=== PATIENT | female | born 1990 | race Caucasian/White ===

== ENCOUNTER 2019-02-06 12:35 | Emergency (ER) | payer BC, OTHER ==
[2019-02-06 12:44] VITALS: BP 117/71; PULSE 73; TEMP 98.2; BMI 38.6
[2019-02-06] MEDS ORDERED: AMOX TR/POT CLAV 875MG/125MG TABLETS (FP) PO ONE (13:27)
[2019-02-06] MEDS ORDERED: IBUPROFEN 400 MG TABLET (FP) PO ONE ×2 (13:27→13:31)
[2019-02-06] MEDS ORDERED: AMOX TR/POT CLAV 875MG/125MG TABLETS (FP) ONE ×2 (13:31→13:32)
--- NOTE | 2019-02-06 13:34 | PDOC ---
History of Present Illness - General Chief Complaint: Toothache Stated Complaint: TOOTH ACHE / SWOLLEN FACE Time Seen by Provider: 02/06/19 12:58 History Source: Patient Exam Limitations: No Limitations Past History - Past Medical History Allergies/Adverse Reactions: Allergies Allergy/AdvReac Type Severity Reaction Status Date / Time No Known Allergies Allergy Verified 02/06/19 12:44 Home Medications: Ambulatory Orders Amoxicillin/Potassium Clav [Augmentin 875-125 Tablet] 1 each PO BID #20 tablet 02/06/19 Anemia: Yes COPD: No - Immunization History Immunization Up to Date: Yes - Suicide/Smoking/Psychosocial Hx Smoking Status: Yes Smoking History: Unknown if ever smoked Have you smoked in the past 12 months: No Number of Cigarettes Smoked Daily: 2 Information on smoking cessation initiated: No Hx Alcohol Use: No Drug/Substance Use Hx: No Substance Use Type: None *Physical Exam - Vital Signs Last Vital Signs Temp Pulse Resp BP Pulse Ox 98.2 F 73 16 117/71 100 02/06/19 12:42 02/06/19 12:42 02/06/19 12:42 02/06/19 12:42 02/06/19 12:42 - Physical Exam General Appearance: No: Apparent Distress HEENT: positive: Pharynx Normal, Other (+R lower facial swelling, +R 1st lower molar cavity, no gum swelling, +tenderness along palpation of gum, unable to express pus) Respiratory/Chest: positive: Lungs Clear, Normal Breath Sounds. negative: Respiratory Distress Cardiovascular: positive: Regular Rhythm, Regular Rate, S1, S2. negative: Murmur Integumentary: positive: Normal Color. negative: Erythema, Ecchymosis, Bruising Medical Decision Making - Medical Decision Making 28 y/o F with no sig pmh presents with R lower toothache from last night and today with R facial swelling. Took her 's Amoxicillin 875 mg x1 and did not see any improvement so came to ED. Denies fever, throat pain, sob, cp, abd pain, n/v. Likely periapical abscess Given Augmentin, Motrin 02/06/19 13:30 *DC/Admit/Observation/Transfer Diagnosis at time of Disposition: Periapical abscess - Discharge Dispostion Disposition: HOME Condition at time of disposition: Stable Decision to Admit order: No - Prescriptions Prescriptions: Amoxicillin/Potassium Clav [Augmentin 875-125 Tablet] 1 each PO BID #20 tablet - Referrals Referrals: Emerald Felix DO [Primary Care Provider] - - Patient Instructions Printed Discharge Instructions: DI for Tooth Abscess Additional Instructions: Thank you for choosing [facility]. It was a pleasure taking care of you. You may take Motrin 600 mg every 6 hours by mouth as needed for mild to moderate pain. Take Motrin with food. Take prescribed antibiotics Please follow-up in dental clinic today. Address: [address] [place] [address] Return to the Emergency Department if your symptoms worsen or persist or have other concerning symptoms. - Post Discharge Activity
== END 2019-02-06 13:48 | disposition home or self-care (01) ==
LOC: JERFT 12:35
DX: K04.7 Periapical abscess without sinus (principal); Z72.0 Tobacco use
CPT/HCPCS: 99282-25